=== PATIENT | female | born 1995 | race Hispanic/Latino ===

== ENCOUNTER 2017-09-01 19:38 | Emergency (ER) | payer MEDICAID ==
[2017-09-01 19:59] VITALS: BP 135/70; PULSE 102; RESP 20; TEMP 97.8; O2SAT 100
--- NOTE | 2017-09-01 20:14 | ED PDOC ---
HPI: Abdomen Time Seen by Provider: 09/01/17 20:05 Chief Complaint (Nursing): Abdominal Pain Chief Complaint (Provider): abdominal pain History Per: Patient History/Exam Limitations: no limitations Onset/Duration Of Symptoms: Days (2) Current Symptoms Are (Timing): Still Present Location Of Pain/Discomfort: RLQ, LLQ, Suprapubic Quality Of Discomfort: Cramping Additional History Per: Patient Additional Complaint(s): 22 y/o female, approximately 12 weeks gestation, presents with lower abdominal cramping x 2 days, worse today. Associated yellow vaginal discharge. Denies fever, nausea/vomiting, chest pain, back pain, vaginal bleeding, dysuria, hematuria. Patient has not had pretnatal care thus far. Abnormal Vaginal Bleeding: No Last Menstral Period: 05/27/17 : 4 Para: 0 Miscarriage: 3 Past Medical History Reviewed: Historical Data, Nursing Documentation, Vital Signs Vital Signs: Last Vital Signs Temp 97.8 F 09/01/17 19:44 Pulse 102 H 09/01/17 19:44 Resp 20 09/01/17 19:44 BP 135/70 09/01/17 19:44 Pulse Ox 100 09/01/17 21:17 - Medical History PMH: Asthma - Surgical History Surgical History: No Surg Hx - Family History Family History: States: No Known Family Hx - Living Arrangements Living Arrangements: With Family - Home Medications Home Medications: Ambulatory Orders Medication Instructions Recorded Nitrofurantoin Macrocrystals 100 mg PO BID #13 cap 09/01/17 [Macrobid] - Allergies Allergies/Adverse Reactions: Allergies Allergy/AdvReac Type Severity Reaction Status Date / Time codeine Allergy HEADACHE Verified 09/01/17 19:42 Review of Systems ROS Statement: Except As Marked, All Systems Reviewed And Found Negative Genitourinary Female: Positive for: Vaginal Discharge, Pelvic Pain Physical Exam - Reviewed Nursing Documentation Reviewed: Yes Vital Signs Reviewed: Yes - Physical Exam Appears: Positive for: Well, Non-toxic, No Acute Distress Head Exam: Positive for: ATRAUMATIC, NORMAL INSPECTION, NORMOCEPHALIC Skin: Positive for: Normal Color Eye Exam: Positive for: Normal appearance ENT: Positive for: Normal ENT Inspection Cardiovascular/Chest: Positive for: Regular Rate, Rhythm Respiratory: Positive for: Normal Breath Sounds Gastrointestinal/Abdominal: Positive for: Bowel Sounds, Soft, Tenderness ( suprapubic) Pelvic Exam: Positive for: External Exam Normal, No Cerv. Motion Tender, Discharge (mild white discharge; no odor), Other (exam bi data modeler Hortencia RN). Negative for: Active Bleeding, Cervicitis Back: Positive for: Normal Inspection Extremity: Positive for: Normal ROM Neurologic/Psych: Positive for: Alert, Oriented - Laboratory Results Result Diagrams: 09/01/17 20:35 09/01/17 20:35 - ECG O2 Sat by Pulse Oximetry: 100 - Progress ED Course And Treament: labs, urine, ob u/s EXAM: US After First Trimester, Transabdominal CLINICAL HISTORY: 22 years old, female; Pain; Other: Cramps; Gestational age or lmp: 05/17/17; ; Additional info: Cramping, approx 12 wks gestation TECHNIQUE: Real-time transabdominal obstetrical ultrasound of the maternal pelvis and a second or third trimester with image documentation. COMPARISON: No relevant prior studies available. FINDINGS: Fetus: There is a single living intrauterine . [place]-rump length measures 7.5 cm. Heart rate: Embryonic/ cardiac activity is identified, at a rate of 157 beats per minute. Presentation: Transverse. Placenta: The placenta is located anteriorly and is normal. No abruption. Amniotic fluid: Unremarkable. BIOMETRICS Gestational age by US: Measurements correlate with a mean gestational age of 13 weeks 2 days. The estimated date of delivery is 03/07/2018. EFW: 68.3 g BPD: 2.2 cm HC: 8 cm AC: 6.3 cm FL: 1.0 cm MATERNAL: Uterus: Unremarkable. No myometrial mass. Cervix: The cervix is closed measuring 4.3 cm. Free fluid: No free fluid. IMPRESSION: Live intrauterine , with no evidence of early complications. Patient educated on findings, discharged with rx macrobid (dose given in ED) Advised follow up [facility] in 2-3 days. Return to ED for worsening/concerning symptoms. Disposition - Clinical Impression Clinical Impression: UTI (urinary tract infection), Abdominal pain during - Patient ED Disposition Is Patient to be Admitted: No Counseled Patient/Family Regarding: Studies Performed, Diagnosis, Need For Followup, Rx Given - Disposition [facility] Disposition: Routine/Home Disposition Time: 23:20 Condition: STABLE Additional Instructions: Follow up with [facility] in 2-3 days. Take medication as directed. Return to ED for worsening/concerning symptoms. Prescriptions: Nitrofurantoin Macrocrystals [Macrobid] 100 mg PO BID #13 cap Instructions: Urinary Tract Infection in Women (ED), Abdominal Pain in (ED) Forms: [employer] (Persian)
[2017-09-01 20:39] LABS: BASO # 0.1 K/uL (0.0-0.2); BASO % 0.9 % (0.0-2.0); EOS # 0.2 K/uL (0.0-0.7); EOS % 2.1 % (0.0-4.0); HEMATOCRIT 37.4 % (34.0-47.0); LYMPH # 1.9 K/uL (1.0-4.3); LYMPH % 21.5 % (20.0-40.0); MEAN CELL VOLUME 86.8 fl (81.0-99.0); MEAN CORPUSCULAR HEMOGLOBIN 28.8 pg (27.0-31.0); MEAN CORPUSCULAR HGB CONC 33.2 g/dL (33.0-37.0); MEAN PLATELET VOLUME 8.5 fl (7.2-11.7); MONO # 0.5 K/uL (0.0-0.8); MONO % 6.3 % (0.0-10.0); NEUT % 69.2 % (50.0-75.0); NRBC % 0.1 % (0.0-0.0); RED CELL DISTRIBUTION WIDTH 13.6 % (11.5-14.5); WHITE BLOOD COUNT 8.7 K/uL (4.8-10.8)
[2017-09-01 21:00] LABS: ALB/GLOB RATIO 1.5 (1.0-2.1); ALKALINE PHOSPHATASE 42 U/L (38-126); ALT/SGPT 32 U/L (9-52); AST/SGOT 21 U/L (14-36); BILIRUBIN,TOTAL 0.2 mg/dl (0.2-1.3); BLOOD UREA NITROGEN 11 mg/dl (7-17); CALCIUM 9.7 mg/dL (8.4-10.2); CARBON DIOXIDE 24 mmol/L (22-30); CHLORIDE 105 mmol/L (98-107); GFR AFRICAN-AMERICAN > 60; GLUCOSE,RANDOM 69 mg/dL (65-105); SODIUM 140 mmol/l (132-148); TOTAL PROTEIN 7.3 G/DL (6.3-8.2)
[2017-09-01 21:07] LABS: RBC URINE 3 /hpf (0-3); URINE BACTERIA RARE (<OCC); URINE BILIRUBIN NEGATIVE (NEGATIVE); URINE BLOOD NEGATIVE (NEGATIVE); URINE COLOR YELLOW (YELLOW); URINE GLUCOSE (UA) NEG (Normal); URINE KETONE NEGATIVE (NEGATIVE); URINE LEUKOCYTE ESTERASE SMALL Leu/uL (Negative); URINE PROTEIN NEGATIVE (NEGATIVE); URINE UROBILINOGEN 0.2-1.0 mg/dL (0.2-1.0); WBC URINE 8 /hpf (0-5)
--- NOTE | 2017-09-01 23:04 | US ---
EXAM: US After First Trimester, Transabdominal CLINICAL HISTORY: 22 years old, female; Pain; Other: Cramps; Gestational age or lmp: 05/17/17; ; Additional info: Cramping, approx 12 wks gestation TECHNIQUE: Real-time transabdominal obstetrical ultrasound of the maternal pelvis and a second or third trimester with image documentation. COMPARISON: No relevant prior studies available. FINDINGS: Fetus: There is a single living intrauterine . [place]-rump length measures 7.5 cm. Heart rate: Embryonic/ cardiac activity is identified, at a rate of 157 beats per minute. Presentation: Transverse. Placenta: The placenta is located anteriorly and is normal. No abruption. Amniotic fluid: Unremarkable. BIOMETRICS Gestational age by US: Measurements correlate with a mean gestational age of 13 weeks 2 days. The estimated date of delivery is 03/07/2018. EFW: 68.3 g BPD: 2.2 cm HC: 8 cm AC: 6.3 cm FL: 1.0 cm MATERNAL: Uterus: Unremarkable. No myometrial mass. Cervix: The cervix is closed measuring 4.3 cm. Free fluid: No free fluid. IMPRESSION: Live intrauterine , with no evidence of early complications.
== END 2017-09-01 23:40 | disposition home or self-care (01) ==
LOC: H.ER 19:38
DX: O23.41 Unspecified infection of urinary tract in pregnancy, first trimester (principal); Z3A.12 12 weeks gestation of pregnancy

== ENCOUNTER 2017-10-09 21:15 | Emergency (ER) | payer MEDICAID ==
[2017-10-09 21:26] VITALS: BP 135/82; PULSE 101; RESP 16; TEMP 97.7; O2SAT 98
[2017-10-09] MEDS ORDERED: Albuterol 0.083% Inhal Sol (2.5 mg/3 mL) UD INH ONE (22:09)
--- NOTE | 2017-10-09 22:16 | ED PDOC ---
HPI: CCC, URI, Sore Throat Time Seen by Provider: 10/09/17 21:25 Chief Complaint (Nursing): Cough, Cold, Congestion Chief Complaint (Provider): Cough History Per: Patient History/Exam Limitations: no limitations Onset/Duration Of Symptoms: Days (x 2 months) Current Symptoms Are (Timing): Still Present Associated Symptoms: Cough, Nasal Congestion Additional Complaint(s): Bhargavi Penny is a 22-year-old A3 female with a past medical history of asthma , approximately 18 weeks , who presents to the ER complaining of a productive cough for 2 months, onset after moving to new apartment. Cough is productive of evans-black sputum, and worsens first thing in the morning. Denies fever. Over the past week the coughing has worsened, and occasionally is blood- tinged. Patient reports having similar symptoms in the past when she was exposed to secondhand smoke. She is unsure of whether there is smoke exposure at her new apartment. Patient has been using her inhaler without relief. Additionally, patient reports having mild abdominal pain which comes and goes, usually associated with coughing. denies urinary symptoms. no vaginal bleeding. PMD: [facility] Past Medical History Reviewed: Historical Data, Nursing Documentation, Vital Signs Vital Signs: Last Vital Signs Temp 97.7 F 10/09/17 21:22 Pulse 101 H 10/09/17 21:22 Resp 16 10/09/17 21:22 BP 135/82 10/09/17 21:22 Pulse Ox 98 10/10/17 00:20 - Medical History PMH: Asthma - Family History Family History: States: Unknown Family Hx - Social History Current smoker - smoking cessation education provided: No Alcohol: None Drugs: Denies - Home Medications Home Medications: Ambulatory Orders Medication Instructions Recorded Nitrofurantoin Macrocrystals 100 mg PO BID #13 cap 09/01/17 [Macrobid] - Allergies Allergies/Adverse Reactions: Allergies Allergy/AdvReac Type Severity Reaction Status Date / Time codeine Allergy HEADACHE Verified 09/01/17 19:42 Review of Systems ROS Statement: Except As Marked, All Systems Reviewed And Found Negative Constitutional: Negative for: Fever Respiratory: Positive for: Cough, Sputum Gastrointestinal: Positive for: Abdominal Pain Physical Exam - Reviewed Nursing Documentation Reviewed: Yes Vital Signs Reviewed: Yes - Physical Exam Appears: Positive for: Non-toxic, No Acute Distress Head Exam: Positive for: ATRAUMATIC, NORMOCEPHALIC Skin: Positive for: Normal Color, Warm, Dry Eye Exam: Positive for: EOMI, Normal appearance, PERRL ENT: Positive for: Normal ENT Inspection Neck: Positive for: Normal, Painless ROM Cardiovascular/Chest: Positive for: Regular Rate, Rhythm. Negative for: Murmur Respiratory: Positive for: Normal Breath Sounds (clear to auscultation bilaterally). Negative for: Rhonchi, Wheezing, Respiratory Distress Pulses-Radial (L): 2+ Pulses-Radial (R): 2+ Gastrointestinal/Abdominal: Positive for: Normal Exam, Soft. Negative for: Tenderness Neurologic/Psych: Positive for: Alert, Oriented - Laboratory Results Result Diagrams: 10/09/17 22:38 10/09/17 22:38 - ECG O2 Sat by Pulse Oximetry: 98 (RA) Pulse Ox Interpretation: Normal Medical Decision Making Medical Decision Making: Time: 22:07 Initial Plan: * CMP * CBC w/ differential * Beta-HCG, quantitative * Albuterol 2.5 mg INH * Peak Flow pre/post treatment * Pending US OB Time: 22:42 US OB FINDINGS: Fetus: There is a single living intrauterine gestation in breech presentation. There is a heart rate of 142 beats per minute. Placenta: Placenta is anterior with no previa or abruption. Amniotic fluid: Amniotic fluid volume appears normal Anatomy: Early gestational age limits evaluation of anatomy. BIOMETRICS Gestational age by US: 18 weeks 4 days EFW: 240 g BPD: 4.29 cm, 19 days 0 days HC: 15.23 cm, 18 weeks 2 days AC: 12.89 cm, 18 weeks 3 days FL: 2.76 cm, 18 weeks 3 days MATERNAL: Cervix: Cervix measures approximately 6 cm IMPRESSION: 18 week 4 day single living breech fetus, estimated date of delivery of 03/08/18 Time: 23:50 --Labs show slight anemia. pt aware of blood reslts. states feels better now. no pain. --Patient requested copy of ultrasound and was provided with one. --Upon provider reevaluation patient is feeling better, is medically stable, and requires no further treatment in the ED at this time. Counseling was provided and all questions were answered regarding diagnosis and need for follow up with PMD. There is agreement to discharge plan. Return if symptoms persist or worsen. Scribe Attestation: Documented by Fina Guevara, acting as a scribe for Nalini Chairez MD Provider Scribe Attestation: All medical record entries made by the Scribe were at my direction and personally dictated by me. I have reviewed the chart and agree that the record accurately reflects my personal performance of the history, physical exam, medical decision making, and the department course for this patient. I have also personally directed, reviewed, and agree with the discharge instructions and disposition. Disposition - Clinical Impression Clinical Impression: Chronic cough, - Patient ED Disposition Is Patient to be Admitted: No Counseled Patient/Family Regarding: Studies Performed, Diagnosis, Need For Followup - Disposition Disposition: Routine/Home Disposition Time: 23:35 Condition: IMPROVED Additional Instructions: follow up with your primary doctor in 1-2 days return to the ED with any worsening or concerning symptoms Instructions: Chronic Cough (ED) Forms: [employer] (Syriac)
[2017-10-09] MEDS ORDERED: Albuterol 0.083% Inhal Sol (2.5 mg/3 mL) UD ONE (22:18)
[2017-10-09 22:42] LABS: BASO % 0.4 % (0.0-2.0); EOS # 0.4 K/uL (0.0-0.7); EOS % 3.5 % (0.0-4.0); HEMOGLOBIN 11.2 g/dL (12.0-16.0); LYMPH # 2.4 K/uL (1.0-4.3); LYMPH % 22.8 % (20.0-40.0); MEAN CELL VOLUME 87.3 fl (81.0-99.0); MEAN CORPUSCULAR HEMOGLOBIN 29.9 pg (27.0-31.0); MEAN CORPUSCULAR HGB CONC 34.2 g/dL (33.0-37.0); MEAN PLATELET VOLUME 8.3 fl (7.2-11.7); MONO # 0.7 K/uL (0.0-0.8); MONO % 6.8 % (0.0-10.0); NEUT # 7.1 K/uL (1.8-7.0); NEUT % 66.5 % (50.0-75.0); RBC 3.75 Mil/uL (3.80-5.20); WHITE BLOOD COUNT 10.6 K/uL (4.8-10.8)
--- NOTE | 2017-10-09 22:42 | US ---
EXAM: US After First Trimester, Transabdominal EXAM DATE/TIME: 10/09/2017 10:08 PM CLINICAL HISTORY: 22 years old, female; Pain; Other: Abd pain/nausea/cough; Gestational age or lmp: Unknown; TECHNIQUE: Real-time transabdominal obstetrical ultrasound of the maternal pelvis and a second or third trimester with image documentation. COMPARISON: US - OB , LIMITED 2017-09-01 21:55 FINDINGS: Fetus: There is a single living intrauterine gestation in breech presentation. There is a heart rate of 142 beats per minute. Placenta: Placenta is anterior with no previa or abruption. Amniotic fluid: Amniotic fluid volume appears normal Anatomy: Early gestational age limits evaluation of anatomy. BIOMETRICS Gestational age by US: 18 weeks 4 days EFW: 240 g BPD: 4.29 cm, 19 days 0 days HC: 15.23 cm, 18 weeks 2 days AC: 12.89 cm, 18 weeks 3 days FL: 2.76 cm, 18 weeks 3 days MATERNAL: Cervix: Cervix measures approximately 6 cm IMPRESSION: 18 week 4 day single living breech fetus, estimated date of delivery of 03/08/18
[2017-10-09 23:01] LABS: ALB/GLOB RATIO 1.3 (1.0-2.1); ALBUMIN 3.9 g/dL (3.5-5.0); ALT/SGPT 38 U/L (9-52); AST/SGOT 16 U/L (14-36); BLOOD UREA NITROGEN 8 mg/dl (7-17); CALCIUM 9.1 mg/dL (8.4-10.2); GFR AFRICAN-AMERICAN > 60; GFR NON-AFRICAN AMERICAN > 60
== END 2017-10-10 00:18 | disposition home or self-care (01) ==
LOC: H.ER 21:15
DX: R05 Cough (principal); O99.512 Diseases of the respiratory system complicating pregnancy, second trimester; J45.909 Unspecified asthma, uncomplicated; Z36.9 Encounter for antenatal screening, unspecified; Z3A.18 18 weeks gestation of pregnancy

== ENCOUNTER 2018-02-25 09:29 | Inpatient (IN) | payer MEDICAID ==
[2018-02-25 10:07] VITALS: BMI 31.7
[2018-02-25] MEDS ORDERED: Oxytocin 30 units/LR 500ML 30 U/500 ML BAG IV ONE ×2 (10:49→14:06)
[2018-02-25] MEDS: Lactated Ringer's 1,000 ML IV SCH ×4 (11:39→23:35)
[2018-02-25 11:50] LABS: BASO % 0.3 % (0.0-2.0); EOS # 0.1 K/uL (0.0-0.7); EOS % 0.7 % (0.0-4.0); LYMPH # 2.3 K/uL (1.0-4.3); LYMPH % 18.6 % (20.0-40.0); MEAN CELL VOLUME 84.8 fl (81.0-99.0); MEAN CORPUSCULAR HEMOGLOBIN 28.6 pg (27.0-31.0); MEAN CORPUSCULAR HGB CONC 33.7 g/dL (33.0-37.0); MEAN PLATELET VOLUME 9.8 fl (7.2-11.7); MONO # 0.9 K/uL (0.0-0.8); MONO % 7.7 % (0.0-10.0); NEUT # 8.8 K/uL (1.8-7.0); NEUT % 72.7 % (50.0-75.0); RBC 4.22 Mil/uL (3.80-5.20); WHITE BLOOD COUNT 12.1 K/uL (4.8-10.8)
--- NOTE | 2018-02-25 14:12 | OBADHP ---
Datetime: 02/25/2018 14:12 Contraction Comments Provider: q2min Dilatation, Provider: 3 Effacement, Provider: 50 Station, Provider: -2 Datetime: 02/25/2018 10:09 Admit Comment, IP Provider: CC: SROM HPI: 22 YO @ 39.1 wks IUP presents to [facility] for ROM. Pt states that around 6:30 this AM she h ad a large volume of fluid per vagina, fluid was clear per pt. Initially there was a small gush, but when pt stood up and coughed she had a larger gush of fluid that pooled in the floor. Occasional ctx that are more regular now. Rates them as a 5/10. Good FM, no VB. ObHx: 3x SAB @ 1st term (2011, 2014, 2015) GynHx: no STIs PMH: hx of asthma SurgH: denies SH: denies ETOH, smoking and illict drug use FH: fx of trisomy 21 and Mediterranean fever Allergies: Codeine allergies Meds: PNV PE Gen: NAD Cardio: S1S2 no additional heart sounds Resp: clear breath sounds b/l Abdomen: Gravid, NT, BS+ Ext: no edema noted Specu/Cervx: small amount of clear fluid in the vaginal vault, nitrazine pos. Cervx /-1 FM: 160 catagory I Bedside u/s: Vertex A/P: 22 YO @ 39.1 wks IUP is admitted for SROM and early labor. GBS neg, B+, GC neg, HIV neg, RPR neg, rubella immune. -admit to L_D -continue FM -blood work -continue monitor labor progress -consult anesthesiology [facility] PGY I Pelvic Type - PN: Adequate Extremities - PN: Normal Abdomen - PN: Normal Back - PN: Not Done Breast - PN: Not Done Lungs - PN: Normal Heart - PN: Normal Thyroid - PN: Not Done Neurologic - PN: Normal HEENT - PN: Normal General - PN: Normal FHR - Baseline A Provider: 160 Amniotic Fluid Color, Provider: Clear Membranes, Provider: Ruptured Pool Provider: Positive Nitrazine Provider: Positive Vital Signs Provider: Reviewed; Within Normal Limits IP Chief Complaint: Suspected ruptured membranes NICHD Variability Prov Fetus A: Moderate 6-25bpm NICHD Accel Fetus A IP Provider: 15X15 FHR Category Provider Fetus A: Category I Genitourinary Exam: Normal DTRs - PN: Not Done IP Adm Impression: Term, intrauterine IP Admit Plan: Admit to unit; Initiate labor protocol
--- NOTE | 2018-02-25 14:14 | OBPN ---
Datetime: 02/25/2018 14:12 IP Progress Impression: Reassuring heart rate IP Procedures: Scalp Electrode IP Progress Plan: Augmentation Contraction Comments Provider: q2min FHR - Baseline A Provider: 140s IP Progress Note Comment: Plan to start Pitocin augmentation due to no progression of labor. Discuss ed plan with patient and all patient questions answered. Both maternal well-being and well-bein g reassuring at this time. NICHD Accel Fetus A IP Provider: 15X15 FHR Category Provider Fetus A: Category I NICHD Variability Prov Fetus A: Moderate 6-25bpm Dilatation, Provider: 3 Effacement, Provider: 50 Station, Provider: -2 NICHD Decel Fetus A IP Provider: None Datetime: 02/25/2018 10:09 Pool Provider: Positive Nitrazine Provider: Positive Membranes, Provider: Ruptured Amniotic Fluid Color, Provider: Clear Vital Signs Provider: Reviewed; Within Normal Limits
--- NOTE | 2018-02-25 21:05 | OBPN ---
Datetime: 02/25/2018 20:45 IP Progress Impression Other: Latent phase of labor IP Progress Impression: Reassuring heart rate IP Informed Consent Obtain: Vaginal Delivery; Risks, Benefits and Alternatives Discussed IP Progress Plan: Continue present management; Augmentation FHR - Baseline A Provider: 140 IP Progress Note Comment: OB Hospitalist on-call...sign out rec;d from Dr Wagner She is sitting on a ball. She does not feel CTX. +FM A: Latent phase of labor PLAN: cont inue Pitocin as ordered...Her and her 's questions answered NICHD Accel Fetus A IP Provider: 15X15 FHR Category Provider Fetus A: Category I NICHD Variability Prov Fetus A: Moderate 6-25bpm NICHD Decel Fetus A IP Provider: None
[2018-02-25] MEDS: Lactated Ringer's 2,000 ML IV SCH ×2 (21:35→23:00)
[2018-02-25] MEDS ORDERED: Fentanyl/Bupivacaine HCl 250 ML EPI ONE (22:34)
[2018-02-26] MEDS ORDERED: DiphenhydrAMINE 50 mg/ml Inj ONE ×2 (01:26→12:59)
[2018-02-26] MEDS ORDERED: DiphenhydrAMINE 50 mg/ml Inj IVP PRN (09:47)
[2018-02-26] MEDS ORDERED: Bupivacaine HCl 0.25% PF (10 ml) Inj ONE (11:45)
[2018-02-26] MEDS ORDERED: Lidocaine 1% 20 MG/2 ML PF AMP ONE (11:47)
[2018-02-26] MEDS ORDERED: Lidocaine 2% Inj (20ml) ONE (11:51)
[2018-02-26] MEDS ORDERED: DiphenhydrAMINE 50 mg/ml Inj IVP ONE (12:56)
--- NOTE | 2018-02-26 16:57 | OBPN ---
Datetime: 02/26/2018 16:47 IP Progress Impression: Normal progression of labor IP Informed Consent Obtain: Vaginal Delivery IP Procedures: Sterile Vag Exam IP Progress Plan: Continue present management Contraction Comments Provider: q 2 mins FHR - Baseline A Provider: 155 IP Progress Note Comment: Patient evaluated, feeling some urge to push but not effectively. Patient having anxiety, discussed with patient about turning off epidural for allowing patient to push more e ffectively. Family has expressed repeatedly that they disagree with the care and management, have exp lained to patient and family repeatedly that the management and care has been appropriate and adequat e. THe heart rate has always been reactive and reassuring and mother is clincially stable. Afte r 4 hours of fully dilated without progress, it is considered an arrest of descent Dilatation, Provider: 10 Effacement, Provider: 100 Station, Provider: 3 Datetime: 02/26/2018 11:12 Membranes, Provider: Ruptured Vital Signs Provider: Reviewed; Within Normal Limits NICHD Accel Fetus A IP Provider: 15X15 NICHD Variability Prov Fetus A: Moderate 6-25bpm
[2018-02-26] MEDS ORDERED: Phenylephrine 10 mg/ml Inj ONE (17:02)
[2018-02-26] MEDS ORDERED: Propofol 10 mg/ml Inj (20 ML) ONE (17:02)
[2018-02-26] MEDS ORDERED: Succinylcholine 200 mg/10 ml Inj IV ONE (17:02)
[2018-02-26] MEDS ORDERED: Nalbuphine 20 mg/ml Inj (1 ml) IVP PRN (17:37)
[2018-02-26] MEDS ORDERED: Nalbuphine 20 mg/ml Inj (1 ml) ONE (17:40)
[2018-02-26] MEDS ORDERED: Oxytocin 30 units/LR 500ML 30 U/500 ML BAG IV ONE ×2 (18:20)
[2018-02-26] MEDS ORDERED: Benzocaine/Menthol SPRAY TOP PRN (18:52)
[2018-02-26] MEDS ORDERED: Oxycodone/Acetaminophen 5/325 mg Tab PO PRN ×3 (18:52→20:40)
--- NOTE | 2018-02-26 18:56 | OBDS ---
DELIVERY PERSONNEL Delivery Doctor: Jovita Shannon MD Assessment Services Manager: Rhonda Wright RN/ Colt Aguirre RN MATERNAL INFORMATION Delivery Anesthesia: Epidural Medications in Delivery: Pitocin Estimated Blood Loss (ml): 200 Placenta Cultured: No Maternal Complications: None Provider Comments: of live male infant over midline perineum, 9/9 APGARS, RAKEL presentation, fol lowed by shoulders and rest of infant, mouth and nose suctioned, cord clamped and cut, assesse d by paint supervisor, cord blood obtained, placenta delivered spontaneously, 2nd degree repaired with 2- 0 vicryl rapide, RLN=[id number], pt tolerated procedure LABOR SUMMARY EDC: 03/03/2018 00:00 No. Babies in Womb: 1 LABOR INFORMATION Onset of Labor: 02/25/2018 08:00 Complete Dilatation: 02/26/2018 13:00 Oxytocin: Augmentation Group B Beta Strep: Negative Steroids Given: None Reason Steroids Not Administered: Not Applicable MEMBRANES Membranes Rupture Method: Spontaneous Rupture of Membranes: 02/25/2018 06:00 Amniotic Fluid Color: Clear Amniotic Fluid Amount: Large Amniotic Fluid Odor: Normal STAGES OF LABOR Stage 1 hrs: 29 Stage 1 min: 0 VAGINAL DELIVERY Episiotomy: None Laceration Extension: Second Degree Initial Vag Sponge Count: 20 4x4 sponges _ 5 Laps Final Vag Sponge Count: 20 4x4 sponges _ 5 Laps Initial Vag Sharps Count: 3 sutures _ 1 needle PRESENTATION/POSITION BABY A Presentation: Cephalic IDENTIFICATION/MEDS BABY A ID Band Number: [id number]
[2018-02-26] MEDS: Benzocaine/Menthol SPRAY TOP PRN (23:29)
[2018-02-26] MEDS: Oxycodone/Acetaminophen 5/325 mg Tab PO PRN (23:40)
[2018-02-27 06:31] LABS: HEMOGLOBIN 8.7 g/dL (12.0-16.0); MEAN CELL VOLUME 84.8 fl (81.0-99.0); MEAN CORPUSCULAR HEMOGLOBIN 28.6 pg (27.0-31.0); MEAN CORPUSCULAR HGB CONC 33.7 g/dL (33.0-37.0); RBC 3.03 Mil/uL (3.80-5.20); RED CELL DISTRIBUTION WIDTH 14.9 % (11.5-14.5); WHITE BLOOD COUNT 15.3 K/uL (4.8-10.8)
[2018-02-27] MEDS: Multivitamin With Minerals Tab PO SCH (08:23)
[2018-02-27] MEDS ORDERED: Multivitamin With Minerals Tab PO SCH (09:00)
--- NOTE | 2018-02-27 14:32 | CP.PCM.CON ---
History of Present Illness - History of Present Illness History of Present Illness: consult requested for history of anxiety pt is a 22ys old female with previous diagnosis of anxiety and panic disorder at age 15, received outpatient treatment then, currently not in treatment pt has been in labour reported that it was a lengthy delivery and she was concerned about the new born,accordingly became increasingly anxious and irritable patient at current time calm, cooperative denied feeling anxious, reported mood is happy for having the new born safe, observed well connecting with the new born , breast feeding, reported receiving lot of social support from mother and sister , denied changes in sleep or appetite denied any manic or psychotic symptoms, denied substance use Past Patient History - Past Social History Smoking Status: Former Smoker - PULMONARY Hx Asthma: Yes - PSYCHIATRIC Hx Substance Use: No Meds Allergies/Adverse Reactions: Allergies Allergy/AdvReac Type Severity Reaction Status Date / Time codeine Allergy HEADACHE Verified 09/01/17 19:42 - Medications Medications: Current Medications Benzocaine/Menthol (Dermoplast) 1 sprays TOP PRN PRN PRN Reason: Perineal Discomfort Last Admin: 02/26/18 23:29 Dose: 1 sprays Ibuprofen (Motrin Tab) 600 mg PO Q6 PRN PRN Reason: Pain, Mild (1-3) Last Admin: 02/27/18 06:42 Dose: 600 mg Ketorolac Tromethamine (Toradol) 30 mg IVP Q6 LOS Stop: 02/27/18 16:01 Last Admin: 02/27/18 10:49 Dose: 30 mg Multivitamins/Minerals (Therapeutic-M Tab) 1 tab PO DAILY [facility] Last Admin: 02/27/18 08:23 Dose: 1 tab Oxycodone/Acetaminophen (Percocet 5/325 Mg Tab) 1 tab PO Q4 PRN PRN Reason: Pain, moderate (4-7) Stop: 03/01/18 18:53 Last Admin: 02/26/18 23:40 Dose: 1 tab Oxycodone/Acetaminophen (Percocet 5/325 Mg Tab) 2 tab PO Q4 PRN PRN Reason: Pain, severe (8-10) Stop: 03/01/18 18:53 Senna/Docusate Sodium (Senokot S 50 Mg-8.6 Mg) 2 tab PO HS [facility] Physical Exam - Psychiatric Exam Additional comments: pt seen in bed calm cooperative , good eye contact, mood reported happy affect appropriate, thought form coherent speech normal , denied any perceptual disturbances, non elicited. denied suicidal or homicidal ideation, alert awake ox3 Results - Labs Result Diagrams: 02/27/18 05:30 Labs: Laboratory Results - last 24 hr 02/27/18 05:30 WBC 15.3 H RBC 3.03 L Hgb 8.7 L D Hct 25.7 L MCV 84.8 MCH 28.6 MCHC 33.7 RDW 14.9 H Plt Count 143 Assessment & Plan - Assessment and Plan (Free Text) Assessment: history of panic disorder adjustment disorder with anxiety Plan: patient psychiatricaly cleared for discharge upon medical clearence at current mental status not danger to self or others
[2018-02-27] MEDS ORDERED: POLYETHYLENE GLYCOL 3350 17 GM/Dose PACKET PO STA (17:18)
--- NOTE | 2018-02-27 17:59 | OBPPN ---
Datetime: 02/27/2018 06:17 PP Pain Prov: Within normal limits PP Nausea Prov: Denies PP Flatus Prov: Yes PP BM Prov: No PP Heart Prov: Normal PP Lungs Prov: Normal PP Abdomen/Uterus Prov: Normal PP Lochia Prov: Normal PP Extremities Prov: Normal PP Impression Prov: Normal progression PP Plan Prov: Continue present management PP Progress Note Prov: PPD 1 S: 22 y/o female s/p on 02/26/18 evaluated on PPD1. Pt was seen and examined at [facility] this AM. Pt was retaining urine overnight so she was straight cathed and put out 1750cc of urine. Pt also anxious throughout the night, seen pacing through halls and admitting to feeling anxious. Pt reports mild abdominal pain and low back pain partially relieved with medication. Ambulating. Breast feeding (with formula supplementation) without difficulty. Lochia is similar to menses volume. +Flatu s/-BM. Denies fever/chills, diarrhea, nausea/vomiting, chest pain, dyspnea, and dizziness. Desires c ircumcision for baby boy. O: VS: Tachycardia ranging from 102-130's. GEN: NAD. Cardio: S1S2, no murmurs Lungs: clear breath sounds b/l, no wheezing Abdomen: BS+, appropriate tenderness to palpation. Uterus is firm and at the level of the umbilic us. EXT: No edema, calves nontender NEURO/PSYCH: AAOx3, no grossly focal deficits, preserved affect and mood. H/H (post ): pending Assessment/Plan: 22 y/o female s/p on 02/26/18, doing well on PPD1. Pt remains afebril e, tolerating pain with medication. Advance diet as tolerated today. Monitor urine output. Tachycardi a likely related to anxiety. Anticipating d/c on 02/28. Continue with current management Encourage and ambulating Ice prn for low back pain Ibuprofen 600mg po q6 and Percocet q6 Colace 100mg BID Sonny Sorenson, PGY1 Patient seen and examined by me this am. Patient states pain not well controlled at this time and does not desire Percocet. Informed patient, may start increased dose of Motrin 800mg po every 8 hrs a s needed. Will hold Iron until +BM. Patient also with h/o anxiety and with increased anxiety since pr esenting to L+D. senior web services developer consult to be called for evalution today. -Dr. Perez Vital Signs Provider PP: Reviewed Vital Signs Provider Details PP: Tachycardia- in setting of moderate anxiety
[2018-02-27] MEDS ORDERED: Docusate-Senna 50 mg-8.6 mg Tab PO SCH (22:00)
[2018-02-28] MEDS: Oxycodone/Acetaminophen 5/325 mg Tab PO PRN (01:43)
[2018-02-28] MEDS ORDERED: POLYETHYLENE GLYCOL 3350 17 GM/Dose PACKET PO SCH (09:00)
[2018-02-28] MEDS: Multivitamin With Minerals Tab PO SCH (10:41)
[2018-02-28] MEDS: Benzocaine/Menthol SPRAY TOP PRN (10:41)
--- NOTE | 2018-02-28 12:07 | OBPPN ---
Datetime: 02/28/2018 06:26 PP Pain Prov: Within normal limits PP Nausea Prov: Denies PP Flatus Prov: Yes PP BM Prov: Yes PP Impression Prov: Normal progression PP Plan Prov: Continue present management; Discharge PP Progress Note Prov: PPD 2 S: 22 y/o female s/p on 02/26/18 evaluated on PPD2. Pt was seen and examined at [facility] this AM. Pt reports moderate-severe low back pain all day that is exacerbated with sitting for lucy g periods and getting in and out of bed. Denies any motor weakness or numbness/tingling in extremitie s. States that the pain is not relived with medication, does not want to take percocet. Ambulating. B reast feeding without difficulty. Lochia is similar to menses volume. +Flatus/+BM. Denies fever/chil ls, diarrhea, nausea/vomiting, chest pain, dyspnea, and dizziness. Desires circumcision for baby boy. O: VS: Tachycardia ranging from 90-141's. GEN: NAD. Cardio: S1S2, no murmurs Lungs: clear breath sounds b/l, no wheezing Abdomen: BS+, appropriate tenderness to palpation. Uterus is firm and at the level of the umbilic us. EXT: No edema, calves nontender, good distal pulses Back: Point tenderness in Coccyx, Full ROM NEURO/PSYCH: AAOx3, no grossly focal deficits, preserved affect and mood. Neuro: Motor and sensorium in tact H/H (post ): 8.7/85.7 Assessment/Plan: 22 y/o female s/p on 02/26/18, doing well on PPD2. Pt remains afebril e. Anemia, po iron held yesterday until BM, restarted today given BM .Tachycardia likely related to a nxiety or anemia. Pt endorsing low back pain likely Coccydynia, xray was considered, however, will no t oil changer. Conservative measures discussed with patient- Nsaids, Ice/heat, donut cushion frank redding, education material printinted for pt. Increased Ibuprofen to 800mg po q8. Social work and Psych consulted yesterday. Psych reports adjustment disorder with anxiety, clear for d/c. Anticipating d/c on 02/28 pending social work. Continue with current management. Will get donut cushsadia from central supply for Coccydynia Encourage and ambulating Ice prn for low back pain Ibuprofen 800mg po q6 and Percocet q6 Ferrous Sulfate 325mg po BID Colace 100mg BID Sonny Sorenson, PGY1 Vital Signs Provider PP: Reviewed Vital Signs Provider Details PP: Tachycardia Datetime: 02/27/2018 06:17 PP Breasts Prov: Normal
--- NOTE | 2018-02-28 12:09 | OBDCSUM ---
Datetime: 02/28/2018 07:09 Discharged to, Provider: Home Follow up at, Provider: [facility] Instr Activity: Normal activity; May be up to bathroom; May be up for meals; May Shower Disch Instr Diet: Regular Discharge Instructions, Provider: Routine instructions given Discharge Diagnosis, Provider: Term Delivered Follow up in weeks, Provider: 4-6 weeks Contraception discussed, Prov: Yes Disch Activity Restrictions: No sexual activity; Nothing in vagina - [place], tampons, douche Discharge Comment, Provider: Diagnosis: on 02/26/18 w/ 2nd degree perineal laceration risk factors: : Male, 3460g, 9/9 Post Summary: No complications during post period. Incision intact, Lochia less than menses. Rubell/TDAP/Flu given. CBC post . Discharge Instructions: 1. Encourage 2. PNV 1 tab po daily 3. Ibuprofen 600mg 1 tab prn for mild-mod pain 5. Ferrous Sulfate 325mg BID 6. ER precations: If excessive bleeding or fever without relief from medication, go to ED 7. F/U in 1-2 weeks and in 4-6 weeks for post visit Contraception after Delivery: Undecided
[2018-02-28 22:41] VITALS: BP 110/61; PULSE 104; RESP 20; TEMP 98.4; O2SAT 99
== END 2018-02-28 16:15 | disposition home or self-care (01) | DRG 373 ==
LOC: H.EROB2 09:29 → H.L&D 10:24 → H.OB/GYN 02-26 20:40
PROVIDERS: ADMIT Obstetrics & Gynecology; ATTEND Obstetrics & Gynecology
PROC: 10E0XZZ Delivery of Products of Conception, External Approach (ICD-10-PCS; 2018-02-25)
PROC: 0KQM0ZZ Repair Perineum Muscle, Open Approach (ICD-10-PCS; principal; 2018-02-26)
PROC: 4A1H74Z Monitoring of Products of Conception, Cardiac Electrical Activity, Via Natural or Artificial Opening (ICD-10-PCS; 2018-02-26)
DX: O70.1 Second degree perineal laceration during delivery (principal); Z37.0 Single live birth; Z3A.39 39 weeks gestation of pregnancy; Z87.891 Personal history of nicotine dependence; O99.344 Other mental disorders complicating childbirth; F43.22 Adjustment disorder with anxiety; J45.909 Unspecified asthma, uncomplicated